=== PATIENT | female | born 1950 | race Two or more races ===

== ENCOUNTER 2025-03-17 13:02 | Emergency (ER) | payer OTHER ==
[~2025-03-17] VITALS: Ht 172.7 cm; Wt 95.4 kg
--- NOTE | 2025-03-17 13:11 | ED.PDOC ---
SOB-HPI HPI Comments 74 year old female presents to the ED via EMS for a chief complaint of worsening SOB x 4 days associated with new onset of palpitations today. Patient states no respiratory or cardiac history and states does not use oxygen at home. EMS noticed patient hypotensive in the 70's systolic and 12 lead EKG read in AFIB. Patient denies any nausea, vomiting, fever, chills, abdominal pain. Chief Complaint: Shortness of Breath Time Seen by MD: 13:05 Reviewed notes: Nurses Notes, Medications, Allergies Information Source: Patient Mode of Arrival: EMS Severity: Moderate Timing: Days (4) Duration: Since onset Context: At Rest PE Risk Factors: None History of: None Modifying Factors: Nothing Associated Signs and Symptoms: Other Past Medical History PAST MEDICAL HISTORY: Denies Surgical History: Denies all surgeries [employer] History: No Pertinent [employer] History Family History Family History: Reviewed,noncontributory to illness Social History Smoker: Non-Smoker Alcohol: Denies ETOH Use Drugs: Denies Drug Use Lives In: Home Constitutional: denies: chills, diaphoresis, fatigue, fever, malaise, sweats, weakness, others EENTM: denies: blurred vision, double vision, ear bleeding, ear discharge, ear drainage, ear pain, ear ringing, eye pain, eye redness, hearing loss, mouth pain, mouth swelling, nasal discharge, nose bleeding, nose congestion, nose pain , photophobia, tearing, throat pain, throat swelling, voice changes, others Respiratory: reports: SOB at rest, shortness of breath, SOB with excertion; denies: cough, hemoptysis, orthopnea, stridor, wheezing, others Cardiovascular: reports: palpitations; denies: chest pain, dizzy spells, diaphoresis, Dyspnea on exertion, edema, irregular heart beat, left arm pain, lightheadedness, PND, syncope, others Gastrointestinal: denies: abdomen distended, abdominal pain, blood streaked bowels, constipated, diarrhea, dysphagia, difficulty swallowing, hematemesis, melena, nausea, poor appetite, poor fluid intake, rectal bleeding, rectal pain, vomiting, others Genitourinary: denies: abnormal vagina bleeding, burning, dyspareunia, dysuria, flank pain, frequency, hematuria, incontinence, pain, , vagina discharge, urgency, others Neurological: denies: dizziness, fainting, headache, left sided numbness, left sided weakness, numbness, paresthesia, pre-existing deficit, right sided numbness, right sided weakness, seizure, speech problems, tingling, tremors, weakness, others Musculoskeletal: denies: back pain, gout, joint pain, joint swelling, muscle pain, muscle stiffness, neck pain, others Integumetry: denies: bruises, change in color, change in hair/nails, dryness, laceration, lesions, lumps, rash, wounds, others Allergic/Immunocompromised: denies: Difficulty Healing, Frequent Infections, H yovanny, Itching, others Hematologic/Lymphatic: denies: anemia, blood clots, easy bleeding, easy bruising, swollen glands, others Endocrine: denies: excessive hunger, excessive sweating, excessive thirst, excessive urination, flushing, intolerance to cold, intolerance to heat, unexplained weight gain, unexplained weight loss, others Psychiatric: denies: anxiety, bipolar disorder, depression, hopeless, panic disorder, schizophrenia, sleepless, suicidal, others All Other Systems: Reviewed and Negative Physical Exam General Appearance: Mild Distress HEENT: Pharynx Normal Neck: Normal Inspection Respiratory: Pleural Effusion Cardiovascular: Tachycardia Breast Exam: Deferred Gastrointestinal: No Organomegaly Genitalia: Deferred Pelvic: Deferred Rectal: Deferred Extremities: Pedal edema Neurologic: No Motor Deficits Cerebellar Function: NOT DONE Reflexes: NOT DONE Skin: Normal Color Lymphatic: NOT DONE Was a procedure done? Was a procedure done?: No Differential Dx Differential Diagnosis: Asthma, Bronchitis, COPD, Pneumonia, Respiratory Distress, URI X-Ray, Labs, Meds, VS Vital Signs Date Time Temp Pulse Resp B/P (MAP) Pulse Ox O2 Delivery O2 Flow Rate FiO2 03/17/25 16:51 97.8 91 16 105/75 (85) 98 97.8 03/17/25 14:43 98.2 53 18 110/77 (88) 98 98.2 03/17/25 14:43 53 18 98 Room Air 03/17/25 13:02 98.1 82 24 127/88 97 98.1 03/17/25 13:02 87 Lab Test 03/17/25 16:40 03/17/25 14:30 03/17/25 13:40 Range/Units Troponin I High Sensitivity Pending 5 4 </=34 ng/L White Blood Count 10.4 4.4-10.8 10^3/uL Red Blood Count 4.93 4.0-5.20 10^6/uL Hemoglobin 14.8 12.2-16.2 g/dL Hematocrit 42.4 36.0-46.0 % Mean Corpuscular Volume 86.1 80.0-100.0 fL Mean Corpuscular Hemoglobin 30.1 28.0-32.0 pg Mean Corpuscular Hemoglobin Concent 34.9 32.0-36.0 g/dL Red Cell Distribution Width 14.2 11.8-14.3 % Platelet Count 258 140-450 10^3/uL Mean Platelet Volume 8.7 6.9-10.8 fL Neutrophils (%) (Auto) 59.9 37.0-80.0 % Lymphocytes (%) (Auto) 26.4 10.0-50.0 % Monocytes (%) (Auto) 10.8 0.0-12.0 % Eosinophils (%) (Auto) 1.8 0.0-7.0 % Basophils (%) (Auto) 1.1 0.0-2.0 % Neutrophils # (Auto) 6.2 1.6-8.6 10 ^3/uL Lymphocytes # (Auto) 2.7 0.4-5.4 10 ^3/uL Monocytes # (Auto) 1.1 0-1.3 10 ^3/uL Eosinophils # (Auto) 0.2 0-0.8 10 ^3/uL Basophils # (Auto) 0.1 0-0.2 10 ^3/uL Nucleated Red Blood Cells 0.0 % Sodium Level 141 136-145 mmol/L Potassium Level 3.4 L 3.5-5.1 mmol/L Chloride Level 105 98-107 mmol/L Carbon Dioxide Level 25 20-31 mmol/L Anion Gap 11 5-15 Blood Urea Nitrogen 25 H 9-23 mg/dL Creatinine 1.78 H 0.550-1.02 mg/dL Glomerular Filtration Rate Calc 30 >90 mL/min BUN/Creatinine Ratio 14.0 10.0-20.0 Serum Glucose 95 74-106 mg/dL Lactic Acid Level 1.3 0.4-2.0 mmol/L Calcium Level 9.3 8.7-10.4 mg/dL B-Type Natriuretic Peptide 352.06 0-100 pg/mL Time of 1ST Reevaluation: 13:08 Reevaluation 1ST: Unchanged Patient Education/Counseling: Diagnosis, Treatment, Prognosis Family Education/Counseling: No Family Present SEPSIS Sepsis Screen Physician Orders Urinalysis (03/17/25 13:06) Chest Portable (03/17/25 13:14) Electrocardigram (03/17/25 13:06) Troponin-I Hs (03/17/25 16:06) Electrocardigram (03/17/25 14:06) Electrocardigram (03/17/25 16:06) Vital Signs Date Time Temp Pulse Resp B/P (MAP) Pulse Ox O2 Delivery O2 Flow Rate FiO2 03/17/25 16:51 97.8 91 16 105/75 (85) 98 97.8 03/17/25 14:43 98.2 53 18 110/77 (88) 98 98.2 03/17/25 14:43 53 18 98 Room Air 03/17/25 13:02 98.1 82 24 127/88 97 98.1 03/17/25 13:02 87 Laboratory Tests Test 03/17/25 13:40 Lactic Acid Level 1.3 mmol/L (0.4-2.0) White Blood Count 10.4 10^3/uL (4.4-10.8) Departure 1 Departure Time of Disposition: 17:18 (Patient with a worsening shortness of breath. Patient also with worsening oxygen requirement and lower extremity edema. Patient also with possibly new onset AFib. We will admit patient for further wo rkup and expert consultation) Impression: Primary Impression: Acute and chronic respiratory failure Additional Impressions: Lower extremity edema Generalized weakness New onset a-fib Disposition: 09 ADMITTED INPATIENT Admit to: Tele Condition: Guarded Critical Care Note Critical Care Time?: Yes Critical care comment: Acute on chronic respiratory failure Authorized and Performed by: Ralph العراقي MD Total critical care time: Approximately 41 minutes Due to a high probability of clinically significant, life threatening deterioration, the patient required my highest level of preparedness to intervene emergently and I personally spent this critical care time directly and personally managing the patient. This critical care time included obtaining a history; examining the patient; pulse oximetry; ordering and review of studies; arranging urgent treatment with development of a management plan; evaluation of patient's response to treatment; frequent reassessment; and, discussions with other providers. This critical care time was performed to assess and manage the high probability of imminent, life-threatening deterioration that could result in multi-organ failure. It was exclusive of separately billable procedures and treating other patients and teaching time. Please see my other sections and the rest of the note for further information on patient assessment and treatment. Stability Stability form required: No Heart Score Heart Score: Heart Score Response (Comments) Value History Moderate Suspicious 1 EKG Repolarization Disturb 1 Age >65 2 Risk Factors No known risk factors 0 Troponin Normal limit 0 Total 4 I personally scribed for RALPH العراقي MD ([email or web address]) on 03/17/25 at 13:11. Electronically submitted by Munira Weir ([facility]). RALPH العراقي MD Mar 17, 2025 13:11
[2025-03-17 13:57] LABS: Hematocrit 42.4 % (36.0-46.0); Hemoglobin 14.8 g/dL (12.2-16.2); Mean Corpuscular Hemoglobin 30.1 pg (28.0-32.0); Mean Corpuscular Volume 86.1 fL (80.0-100.0); Nucleated Red Blood Cells % 0.0 %
[2025-03-17 14:00] LABS: Chloride 105 mmol/L (98-107); Sodium 141 mmol/L (136-145)
[2025-03-17 14:01] LABS: Anion Gap 11 (5-15); Carbon Dioxide 25 mmol/L (20-31)
[2025-03-17 14:02] LABS: Calcium 9.3 mg/dL (8.7-10.4)
--- NOTE | 2025-03-17 14:05 | DVH ---
CHEST RADIOGRAPH Indication: sob Technique: Single frontal view of the chest was obtained Comparison: None FINDINGS: Lines and Tubes: None Lungs: No focal consolidation. Pleura: No effusion. No pneumothorax. Cardiomediastinal contours: Unremarkable Bones: No acute osseous abnormality. IMPRESSION: 1. No acute cardiopulmonary disease.
[2025-03-17 14:07] LABS: BUN/Creatinine Ratio 14.0 (10.0-20.0); Glucose 95 mg/dL (74-106)
[2025-03-17 14:09] LABS: Blood Urea Nitrogen 25 mg/dL (9-23); Potassium 3.4 mmol/L (3.5-5.1)
[2025-03-17] MEDS: SODIUM CHLORIDE 0.9% 1,000 ML IV ONE (14:56)
[2025-03-17 17:59] LABS: Urine Protein, UAD Negative (Negative)
[2025-03-17 18:24] VITALS: PULSE 86; RESP 18; O2SAT 98
[2025-03-17 20:40] VITALS: RESP 18; TEMP 97.7; O2SAT 98
[2025-03-17 21:30] VITALS: BP 108/55; PULSE 69; RESP 11; O2SAT 97
--- NOTE | 2025-03-20 08:15 | ECG ---
[facility] Test Date: 2025-03-17 Test Time: 13:00:07 Pat Name: REED POE Department: ED Room: Gender: F Press Smith Helper: JEN : 1950 Requested By: RALPH JAVIER Order Number: [id number] Reading MD: Modesto Mederos Measurements Intervals [place] Rate: 87 P: 0 MA: 0 QRS: 23 QRSD: 103 T: 34 QT: 396 QTc: 477 Interpretive Statements Atrial fibrillation Minimal ST depression, inferior leads Electronically Signed On 03-22-2025 17:41:02 PST by Modesto Mederos Please click the below link to view image of tracing.
== END 2025-03-17 22:24 | disposition left against medical advice (07) ==
LOC: EDBD 13:02 → ER 13:08
DX: J96.20 Acute and chronic respiratory failure, unspecified whether with hypoxia or hypercapnia (principal); I48.91 Unspecified atrial fibrillation; R60.0 Localized edema; R53.1 Weakness
CPT/HCPCS: 36415; 71045; 80048; 81001; 83605; 83880; 84484; 85025; 93005; 99291